=== PATIENT | male | born 1960 | race African-American/Black ===

== ENCOUNTER 2017-04-09 21:08 | Inpatient (IN) | payer OTHER ==
--- NOTE | 2017-04-09 21:41 | HP ---
CIWA Score - CIWA Score Nausea/Vomitin-Mild Nausea/No Vomiting Muscle Tremors: 4-Moderate,w/Arms Extend Anxiety: 4-Mod. Anxious/Guarded Agitation: 4-Moderately Restless Paroxysmal Sweats: 1-Minimal Palms Moist Orientation: 0-Oriented Tacttile Disturbances: 0-None Auditory Disturbances: 0-None Visual Disturbances: 0-None Headache: 1-Very Mild CIWA-Ar Total Score: 15 Admission ROS BHS - HPI Chief Complaint: WITHDRAWAL SX Allergies/Adverse Reactions: Allergies Allergy/AdvReac Type Severity Reaction Status Date / Time Penicillins Allergy Severe Swelling Verified 04/09/17 21:34 History of Present Illness: 56 YEARS OLD MALE WITH LONG HISTORY OF ALCOHOL COCAINE NICOTINE DEPENDENCE, HAS HYPERTENSION AND SCHZOPHRENIA IS ADMITTED TO DETOX Exam Limitations: No Limitations - Ebola screening Have you traveled outside of the country in the last 21 days: No (N) Have you had contact with anyone from an Ebola affected area: No Have you been sick,other than usual withdrawal symptoms: No Do you have a fever: No - Review of Systems Constitutional: Chills, Changes in sleep, Weight Stable EENT: reports: Dental Problems (UPPER TEETH MISSING) Respiratory: reports: No Symptoms reported Cardiac: reports: No Symptoms Reported GI: reports: Nausea, Poor Fluid Intake, Abdominal cramping : reports: No Symptoms Reported Musculoskeletal: reports: Joint Pain (RIGHT LEG) Integumentary: reports: No Symptoms Reported Neuro: reports: Tremors Endocrine: reports: No Symptoms Reported Hematology: reports: No Symptoms Reported Psychiatric: reports: Judgement Intact, Anxious, Depressed Other Systems: Reviewed and Negative Patient History - Patient Medical History Hx Anemia: No Hx Asthma: No Hx Chronic Obstructive Pulmonary Disease (COPD): No Hx Cancer: No Hx Cardiac Disorders: No Hx Congestive Heart Failure: No Hx Hypertension: Yes Hx Hypercholesterolemia: No Hx Pacemaker: No HX Cerebrovascular Accident: No Hx Seizures: No Hx Dementia: No Hx Diabetes: No Hx Gastrointestinal Disorders: Yes Hx Liver Disease: No Hx Genitourinary Disorders: No Hx Sexually Transmitted Disorders: No Hx Renal Disease (ESRD): No Hx Thyroid Disease: No Hx Human Immunodeficiency Virus (HIV): No Hx Hepatitis C: No Hx Depression: No Hx Suicide Attempt: No Hx Bipolar Disorder: No Hx Schizophrenia: Yes - Patient Surgical History Hx Orthopedic Surgery: Yes (RIGHT HIP FX 2003) Anesthesia Reaction: No - PPD History Previous Implant?: Yes Documented Results: Positive w/o proof Implanted On Prior [facility] Admission?: No PPD to be Administered?: Yes - Smoking Cessation Smoking history: Current every day smoker Have you smoked in the past 12 months: Yes Aproximately how many cigarettes per day: 20 Cigars Per Day: 0 Hx Chewing Tobacco Use: No Initiated information on smoking cessation: Yes 'Breaking Loose' booklet given: 04/09/17 - Substance & Tx. History Hx Alcohol Use: Yes Hx Substance Use: Yes Substance Use Type: Alcohol, Cocaine Hx Substance Use Treatment: Yes - Substances Abused Alcohol Route: Oral Frequency: Daily Amount used: PINT [id number]+[id number] Age of first use: 16 Date of Last Use: 04/09/17 Family Disease History - Family Disease History Family Disease History: Heart Disease: Grandparent (), Mother (MENTAL ILLNESS), Sister, Other: Father (), Mother Admission Physical Exam BHS - Physical General Appearance: Yes: Appropriately Dressed, Alcohol on Breath, Tremorous, Irritable, Sweating, Anxious HEENTM: Yes: Hearing grossly Normal, Normal ENT Inspection, Normocephalic, Normal Voice Respiratory: Yes: Chest Non-Tender, Lungs Clear, Normal Breath Sounds, No Respiratory Distress, No Accessory Muscle Use Neck: Yes: Supple, Trachea in good position Breast: Yes: Breasts Symetrical Cardiology: Yes: Regular Rhythm, S1, S2, Tachycardia Abdominal: Yes: Non Tender, Soft Genitourinary: Yes: Within Normal Limits Back: Yes: Normal Inspection Musculoskeletal: Yes: full range of Motion, Gait Steady, Back pain, Muscle Pain (RIGHT LEG) Extremities: Yes: Normal Range of Motion, Non-Tender, Tremors Neurological: Yes: Alert, Motor Strength 5/5, Normal Response, Depressed Affect Integumentary: Yes: Warm Lymphatic: Yes: Within Normal Limits - Diagnostic (1) Alcohol dependence with uncomplicated withdrawal Current Visit: Yes Status: Acute (2) Cocaine dependence, uncomplicated Current Visit: Yes Status: Chronic (3) Nicotine dependence Current Visit: Yes Status: Acute Qualifiers: Nicotine product type: cigarettes Substance use status: in withdrawal Qualified Code(s): F17.213 - Nicotine dependence, cigarettes, with withdrawal (4) Hypertension Current Visit: Yes Status: Chronic Qualifiers: Hypertension type: essential hypertension Qualified Code(s): I10 - Essential (primary) hypertension (5) Use of cane as ambulatory aid Current Visit: Yes Status: Chronic (6) Arthritis Current Visit: Yes Status: Chronic (7) GERD (gastroesophageal reflux disease) Current Visit: Yes Status: Chronic Qualifiers: Esophagitis presence: without esophagitis Qualified Code(s): K21.9 - Gastro-esophageal reflux disease without esophagitis (8) Positive PPD, treated Current Visit: Yes Status: Chronic (9) Muscle cramp Current Visit: Yes Status: Chronic (10) Schizophrenia Current Visit: Yes Status: Chronic Qualifiers: Schizophrenia type: schizophreniform disorder Qualified Code(s): 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 Cleared for Admission BHS - Detox or Rehab S Level of Care: Medically Managed Detox Regimen/Protocol: Librium BHS Breath Alcohol Content Breath Alcohol Content: 0.019 Vital Signs - Vital Signs Vital Signs Refused: No Temperature: 97.6 F Temperature Source: Oral Pulse Rate: 96 Respiratory Rate: 20 Blood Pressure: 155/95 BP Location: Right Arm Blood Pressure Position: Supine - Height Height: 5 ft 3 in - Weight Weight: 160 lb Weight Measurement Method: Standing Scale Body Mass Index (BMI): 28.3 - Bowel Function Bowel Movement: Yes Urine Drug Screen - Control Is Test Valid: Yes - Results Drug Screen Negative: No Urine Drug Screen Results: ESTELLA-Cocaine
[2017-04-09] MEDS ORDERED: ACETAMINOPHEN 325 MG TABLET (FP) PO PRN (21:49)
[2017-04-09] MEDS ORDERED: LOPERAMIDE HCL 2 MG CAPSULE PO PRN (21:49)
[2017-04-09] MEDS ORDERED: MENTHOL/PHENOL 1 EACH UD MM PRN (21:49)
[2017-04-09] MEDS ORDERED: P-EPHED 60MG/TRIPROLIDI 2.5MG TABLET PO PRN (21:49)
[2017-04-09] MEDS ORDERED: guaiFENesin/D-METHORPHAN HB 10 ML UNIT-DOSE CUPS PO PRN (21:49)
[2017-04-09] MEDS ORDERED: MAGNESIUM CITRATE 300 ML BOTTLE PO PRN (21:49)
[2017-04-09] MEDS ORDERED: MAG HYDROX/AL HYDROX/SIMETH 30 ML UNIT-DOSE CUP PO PRN (21:49)
[2017-04-09] MEDS ORDERED: hydrOXYzine PAMOATE 50 MG CAPSULE (FP) PO PRN (21:49)
[2017-04-09] MEDS ORDERED: chlordiazePOXIDE HCL 25 MG CAPSULE PO PRN (21:49)
[2017-04-09] MEDS ORDERED: diphenhydrAMINE HCL 50 MG CAPSULE PO PRN (21:49)
[2017-04-09] MEDS ORDERED: NICOTINE POLACRILEX 4 MG GUM BUC PRN (21:49)
[2017-04-09] MEDS ORDERED: MAGNESIUM HYDROX 2400MG/30ML ORAL SUSPENSION 30 ML CUP PO PRN (21:49)
[2017-04-09] MEDS ORDERED: CYCLOBENZAPRINE HCL 10 MG TABLET (FP) PO PRN (21:53)
[2017-04-09] MEDS ORDERED: BACITRACIN 0.9 GM PACKET TP ONE (21:53)
[2017-04-09] MEDS ORDERED: cloNIDine HCL 0.1 MG TABLET PO PRN (21:57)
[2017-04-09 22:34] VITALS: BMI 28.3
[2017-04-09] MEDS: chlordiazePOXIDE HCL 25 MG CAPSULE PO SCH (22:53)
[2017-04-09] MEDS: RANITIDINE HCL 150 MG TABLET (FP) PO SCH (22:53)
[2017-04-09] MEDS: THIAMINE HCL 100 MG TABLET (FP) PO SCH (22:54)
[2017-04-09] MEDS: MINERAL OIL/PETROLAT/WATER TOPICAL CREAM 113 GM JAR TP SCH (22:55)
[2017-04-09 23:19] LABS: URINE APPEARANCE CLEAR; URINE BILIRUBIN NEGATIVE (NEGATIVE); URINE BLOOD NEGATIVE (NEGATIVE); URINE COLOR LTYELLOW; URINE GLUCOSE (UA) NEGATIVE (NEGATIVE); URINE KETONE NEGATIVE (NEGATIVE); URINE LEUK ESTERASE NEGATIVE (NEGATIVE); URINE NITRITE NEGATIVE (NEGATIVE); URINE PROTEIN NEGATIVE (NEGATIVE); URINE UROBILINOGEN 2.0 E.U/dl E.U./dl (0.2-1.0)
[2017-04-10] MEDS: chlordiazePOXIDE HCL 25 MG CAPSULE PO SCH ×4 (06:06→23:02)
[2017-04-10 09:56] LABS: MCH 24.2 pg (25.7-33.7); MCHC 31.5 g/dl (32.0-35.9); MEAN CELL VOLUME 76.8 fl (80-96); MEAN PLT VOLUME 10.2 fl (7.5-11.1); PLATELET COUNT 169 K/MM3 (134-434); RDW 14.2 % (11.9-15.9); WHITE BLOOD COUNT 6.3 K/mm3 (4.0-10.0)
[2017-04-10] MEDS: RANITIDINE HCL 150 MG TABLET (FP) PO SCH ×2 (10:40→23:02)
[2017-04-10] MEDS: NICOTINE 21 MG/24 HOURS TOPICAL PATCH TD SCH (10:40)
[2017-04-10] MEDS: PRENATAL VITAMINS W/ FOLIC ACID TABLET (FP) PO SCH (10:40)
--- NOTE | 2017-04-10 10:40 | PN ---
S CIWA - CIWA Score Nausea/Vomitin Muscle Tremors: 3 Anxiety: 3 Agitation: 2 Paroxysmal Sweats: 1-Minimal Palms Moist Orientation: 0-Oriented Tacttile Disturbances: 1-Very Mild Itch/Numbness Auditory Disturbances: 1-Very Mild Visual Disturbances: 1-Very Mild Sensitivity Headache: 2-Mild CIWA-Ar Total Score: 17 BHS Progress Note (SOAP) Subjective: ALERT,IRRITABLE,ANXIOUS,INTERRUPTED SLEEP,TREMOR Objective: 04/10/17 10:38 Vital Signs Temperature 97.1 F L 04/10/17 09:42 Pulse Rate 90 04/10/17 09:42 Respiratory Rate 20 04/10/17 09:42 Blood Pressure 139/93 04/10/17 09:42 O2 Sat by Pulse Oximetry (%) EKG NSR,RBBB NO CHEST PAIN,NO SOB,NO DIZZINESS 04/10/17 10:39 04/10/17 10:39 Laboratory Last Values WBC 6.3 K/mm3 (4.0-10.0) 04/10/17 07:00 RBC 4.85 M/mm3 (4.00-5.60) 04/10/17 07:00 Hgb 11.7 GM/dL (11.7-16.9) 04/10/17 07:00 Hct 37.2 % (35.4-49) 04/10/17 07:00 MCV 76.8 fl (80-96) L 04/10/17 07:00 MCHC 31.5 g/dl (32.0-35.9) L 04/10/17 07:00 RDW 14.2 % (11.9-15.9) 04/10/17 07:00 Plt Count 169 K/MM3 (134-434) 04/10/17 07:00 MPV 10.2 fl (7.5-11.1) 04/10/17 07:00 Urine Color Ltyellow 04/09/17 23:00 Urine Appearance Clear 04/09/17 23:00 Urine pH 6.0 (5.0-8.0) 04/09/17 23:00 Urine Protein Negative (NEGATIVE) 04/09/17 23:00 Urine Glucose (UA) Negative (NEGATIVE) 04/09/17 23:00 Urine Ketones Negative (NEGATIVE) 04/09/17 23:00 Urine Blood Negative (NEGATIVE) 04/09/17 23:00 Urine Nitrite Negative (NEGATIVE) 04/09/17 23:00 Urine Bilirubin Negative (NEGATIVE) 04/09/17 23:00 Urine Urobilinogen 2.0 e.u/dl E.U./dl (0.2-1.0) 04/09/17 23:00 Ur Leukocyte Esterase Negative (NEGATIVE) 04/09/17 23:00 LABS PENDING Assessment: 04/10/17 10:39 04/10/17 10:40 WITHDRAWAL SYMPTOM Plan: CONTINUE DETOX
[2017-04-10 10:41] LABS: ALBUMIN 3.2 g/dl (3.4-5.0); ALK PHOS 94 U/L (45-117); ANION GAP 11 (8-16); BILIRUBIN,TOTAL 0.3 mg/dL (0.2-1.0); CALCIUM 8.5 mg/dL (8.5-10.1); CO2 28 mmol/L (21-32); COCKROFT - GAULT 76.97; CREATININE 1.1 mg/dL (0.7-1.3); GLUCOSE,RANDOM 108 mg/dL (74-106); SGOT/AST 30 U/L (15-37); SGPT/ALT 35 U/L (12-78); TOT PROT 6.5 g/dl (6.4-8.2)
--- NOTE | 2017-04-10 13:21 | EKG ---
Test Reason : Blood Pressure : / mmHG Vent. Rate : 091 BPM Atrial Rate : 091 BPM P-R Int : 120 ms QRS Dur : 120 ms QT Int : 388 ms P-R-T Axes : 052 -53 014 degrees QTc Int : 477 ms NORMAL SINUS RHYTHM RIGHT BUNDLE BRANCH BLOCK LEFT ANTERIOR FASCICULAR BLOCK BIFASCICULAR BLOCK ABNORMAL ECG WHEN COMPARED WITH ECG OF 09-APR-2017 22:04, NO SIGNIFICANT CHANGE WAS FOUND Confirmed by RADHA RASMUSSEN MD ([id number]) on 04/10/2017 1:21:17 PM Referred By: Confirmed By:RADHA RASMUSSEN MD
--- NOTE | 2017-04-10 13:21 | EKG ---
Test Reason : Blood Pressure : / mmHG Vent. Rate : 094 BPM Atrial Rate : 094 BPM P-R Int : 122 ms QRS Dur : 128 ms QT Int : 394 ms P-R-T Axes : 055 -58 030 degrees QTc Int : 492 ms NORMAL SINUS RHYTHM RIGHT BUNDLE BRANCH BLOCK LEFT ANTERIOR FASCICULAR BLOCK BIFASCICULAR BLOCK MINIMAL VOLTAGE CRITERIA FOR LVH, MAY BE NORMAL VARIANT SEPTAL INFARCT , AGE UNDETERMINED ABNORMAL ECG NO PREVIOUS ECGS AVAILABLE Confirmed by RADHA RASMUSSEN MD ([id number]) on 04/10/2017 1:20:59 PM Referred By: Confirmed By:RADHA RASMUSSEN MD
--- NOTE | 2017-04-10 15:14 | CONSULT ---
[facility] Psychiatric Consult - Data Date of interview: 04/10/17 Admission source: [facility] Identifying data: Readmission to [facility] for this 56 y/o AA male seeking detox treatment for alcohol and cocaine dependence.Patient is single without children,homeless,unemployed and supported on [facility] benefits. Substance Abuse History: - Smoking Cessation. Smoking history: Current every day smoker. Have you smoked in the past 12 months: Yes. Aproximately how many cigarettes per day: 20. Cigars Per Day: 0. Hx Chewing Tobacco Use: No. Initiated information on smoking cessation: Yes. 'Breaking Loose' booklet given : 04/09/17. - Substance & Tx. History. Hx Alcohol Use: Yes. Hx Substance Use : Yes. Substance Use Type: Alcohol, Cocaine. Hx Substance Use Treatment: Yes. - Substances Abused. Alcohol. Route: Oral. Frequency: Daily. Amount used: PINT VOLKA+40OZX3. Age of first use: 16. Date of Last Use: 04/09/17. Confirmed by patient. Medical History: Hypertension and a history of orthosurgery (right hip in 2003). Psychiatric History: Patient is a hostile,irritable and uncooperative historian.He endorses a history of psychiatric hospitalizations.No details offered.Mr Winn reports treatment with zyprexa 5 mg/hs and zoloft 100 mg/ day.Diagnosed with Schizophrenia.Patient denies having a psychiatric OPD care provider.Denies history of suicide attempts. Physical/Sexual Abuse/Trauma History: Patient denies. Additional Comment: Urine Drug Screen Results: ESTELLA-Cocaine.Noted. Mental Status Exam - Mental Status Exam Alert and Oriented to: Time, Place, Person Cognitive Function: Grossly Intact Patient Appearance: Well Groomed Mood: Withdrawn, Irritable Affect: Mood Congruent Patient Behavior: Fatigued, Uncooperative Speech Pattern: Clear, Delayed Voice Loudness: Moderately Soft/Quiet Thought Process: Goal Oriented Thought Disorder: Not Present Hallucinations: Denies Suicidal Ideation: Denies Homicidal Ideation: Denies Insight/Judgement: Poor Sleep: Well Appetite: Good Muscle strength/Tone: Normal Gait/Station: Other (uses a cane for ambulation.) Psychiatric Findings - Problem List (False Pass 1, 2,3) (1) Alcohol dependence with uncomplicated withdrawal Current Visit: Yes Status: Acute (2) Cocaine dependence, uncomplicated Current Visit: Yes Status: Chronic (3) Nicotine dependence Current Visit: Yes Status: Acute Qualifiers: Nicotine product type: cigarettes Substance use status: in withdrawal Qualified Code(s): F17.213 - Nicotine dependence, cigarettes, with withdrawal (4) Schizophrenia Current Visit: Yes Status: Chronic Qualifiers: Schizophrenia type: schizophreniform disorder Qualified Code(s): 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 (5) Arthritis Current Visit: Yes Status: Chronic (6) GERD (gastroesophageal reflux disease) Current Visit: Yes Status: Chronic Qualifiers: Esophagitis presence: without esophagitis Qualified Code(s): K21.9 - Gastro-esophageal reflux disease without esophagitis (7) Hypertension Current Visit: Yes Status: Chronic Qualifiers: Hypertension type: essential hypertension Qualified Code(s): I10 - Essential (primary) hypertension (8) Positive PPD, treated Current Visit: Yes Status: Chronic (9) Use of cane as ambulatory aid Current Visit: Yes Status: Chronic - Initial Treatment Plan Initial Treatment Plan: Psychoeducation.Detoxification.Medications : zoloft 100 mg po daily + zyprexa 15 mg po hs.Doses verified via contact with [facility] @ [phone] : most recent refills picked up on 03/05/17.New refills needed.Side effects/benefits discussed with patient.He agrees with plan.Observation.
[2017-04-10] MEDS: THIAMINE HCL 100 MG TABLET (FP) PO SCH (23:02)
[2017-04-10] MEDS: MINERAL OIL/PETROLAT/WATER TOPICAL CREAM 113 GM JAR TP SCH (23:02)
[2017-04-10] MEDS: OLANZapine 7.5 MG TABLET PO SCH (23:02)
[2017-04-11] MEDS: chlordiazePOXIDE HCL 25 MG CAPSULE PO SCH ×3 (06:01→17:53)
[2017-04-11] MEDS: PRENATAL VITAMINS W/ FOLIC ACID TABLET (FP) PO SCH (10:38)
[2017-04-11] MEDS: SERTRALINE HCL 50 MG TABLET (FP) PO SCH (10:38)
[2017-04-11] MEDS: RANITIDINE HCL 150 MG TABLET (FP) PO SCH ×2 (10:38→23:09)
[2017-04-11] MEDS: NICOTINE 21 MG/24 HOURS TOPICAL PATCH TD SCH (10:39)
--- NOTE | 2017-04-11 14:57 | PN ---
S CIWA - CIWA Score Nausea/Vomitin Muscle Tremors: 4-Moderate,w/Arms Extend Anxiety: 2 Agitation: 2 Paroxysmal Sweats: 3 Orientation: 4Disoriented Place/Person Tacttile Disturbances: 3-Moderate Itch/Numb/Burn Auditory Disturbances: 0-None Visual Disturbances: 0-None Headache: 0-None Present CIWA-Ar Total Score: 23 BHS Progress Note (SOAP) Subjective: Vomiting, Body Aches, Tremors, Interrupted sleep. Objective: PT. A & O X 2 (DISORIENTED ABOUT CURRENT LOCATION). PT. OBSERVED AMBULATING ON UNIT. PT. DENIES CHEST PAIN. 04/11/17 14:52 Vital Signs Temperature 96.2 F L 04/11/17 09:19 Pulse Rate 91 H 04/11/17 09:19 Respiratory Rate 20 04/11/17 09:19 Blood Pressure 126/95 04/11/17 09:19 O2 Sat by Pulse Oximetry (%) Laboratory Last Values WBC 6.3 K/mm3 (4.0-10.0) 04/10/17 07:00 RBC 4.85 M/mm3 (4.00-5.60) 04/10/17 07:00 Hgb 11.7 GM/dL (11.7-16.9) 04/10/17 07:00 Hct 37.2 % (35.4-49) 04/10/17 07:00 MCV 76.8 fl (80-96) L 04/10/17 07:00 MCHC 31.5 g/dl (32.0-35.9) L 04/10/17 07:00 RDW 14.2 % (11.9-15.9) 04/10/17 07:00 Plt Count 169 K/MM3 (134-434) 04/10/17 07:00 MPV 10.2 fl (7.5-11.1) 04/10/17 07:00 Sodium 143 mmol/L (136-145) 04/10/17 07:00 Potassium 4.0 mmol/L (3.5-5.1) 04/10/17 07:00 Chloride 104 mmol/L (98-107) 04/10/17 07:00 Carbon Dioxide 28 mmol/L (21-32) 04/10/17 07:00 Anion Gap 11 (8-16) 04/10/17 07:00 BUN 18 mg/dL (7-18) 04/10/17 07:00 Creatinine 1.1 mg/dL (0.7-1.3) 04/10/17 07:00 Creat Clearance w eGFR > 60 (>60) 04/10/17 07:00 Random Glucose 108 mg/dL (74-106) H 04/10/17 07:00 Calcium 8.5 mg/dL (8.5-10.1) 04/10/17 07:00 Total Bilirubin 0.3 mg/dL (0.2-1.0) 04/10/17 07:00 AST 30 U/L (15-37) 04/10/17 07:00 ALT 35 U/L (12-78) 04/10/17 07:00 Alkaline Phosphatase 94 U/L (45-117) 04/10/17 07:00 Total Protein 6.5 g/dl (6.4-8.2) 04/10/17 07:00 Albumin 3.2 g/dl (3.4-5.0) L 04/10/17 07:00 Urine Color Ltyellow 04/09/17 23:00 Urine Appearance Clear 04/09/17 23:00 Urine pH 6.0 (5.0-8.0) 04/09/17 23:00 Ur Specific [place] 1.010 (1.005-1.025) 04/09/17 23:00 Urine Protein Negative (NEGATIVE) 04/09/17 23:00 Urine Glucose (UA) Negative (NEGATIVE) 04/09/17 23:00 Urine Ketones Negative (NEGATIVE) 04/09/17 23:00 Urine Blood Negative (NEGATIVE) 04/09/17 23:00 Urine Nitrite Negative (NEGATIVE) 04/09/17 23:00 Urine Bilirubin Negative (NEGATIVE) 04/09/17 23:00 Urine Urobilinogen 2.0 e.u/dl E.U./dl (0.2-1.0) 04/09/17 23:00 Ur Leukocyte Esterase Negative (NEGATIVE) 04/09/17 23:00 RPR Titer Nonreactive (NONREACTIVE) 04/10/17 07:00 LABS NOTED. 04/11/17 14:57 Assessment: 04/11/17 14:57 WITHDRAWAL SYMPTOMS. Plan: CONTINUE DETOX. CONTINUE TO MONITOR BP. ADVISED PATIENT TO FOLLOW-UP WITH INSTRUCTOR NURSE AFTER DISCHARGE FROM DETOX FOR GENERAL MEDICAL ASSESSMENT AND FOR ABNORMAL ADMISSION LAB VALUES.
[2017-04-11] MEDS: chlordiazePOXIDE 5 MG CAPSULE PO SCH (23:09)
[2017-04-11] MEDS: THIAMINE HCL 100 MG TABLET (FP) PO SCH (23:09)
[2017-04-11] MEDS: MINERAL OIL/PETROLAT/WATER TOPICAL CREAM 113 GM JAR TP SCH (23:09)
[2017-04-11] MEDS: OLANZapine 7.5 MG TABLET PO SCH (23:09)
[2017-04-12] MEDS: chlordiazePOXIDE 5 MG CAPSULE PO SCH ×3 (06:44→17:37)
[2017-04-12] MEDS: RANITIDINE HCL 150 MG TABLET (FP) PO SCH ×2 (10:47→22:58)
[2017-04-12] MEDS: SERTRALINE HCL 50 MG TABLET (FP) PO SCH (10:47)
[2017-04-12] MEDS: PRENATAL VITAMINS W/ FOLIC ACID TABLET (FP) PO SCH (10:47)
[2017-04-12] MEDS: NICOTINE 21 MG/24 HOURS TOPICAL PATCH TD SCH (10:47)
[2017-04-12] MEDS: amLODIPine BESYLATE 5 MG TABLET (FP) PO SCH (10:47)
--- NOTE | 2017-04-12 16:08 | PN ---
BHS Progress Note (SOAP) Subjective: Body Aches, Tremors, Interrupted sleep. Objective: PT. A & O X 1 (DISORIENTED ABOUT DAY / DATE AND ABOUT CURRENT LOCATION). PATIENT DENIES CHEST PAIN. 04/12/17 16:04 Vital Signs Temperature 97.6 F 04/12/17 13:59 Pulse Rate 84 04/12/17 13:59 Respiratory Rate 20 04/12/17 13:59 Blood Pressure 159/111 04/12/17 13:59 O2 Sat by Pulse Oximetry (%) Laboratory Last Values WBC 6.3 K/mm3 (4.0-10.0) 04/10/17 07:00 RBC 4.85 M/mm3 (4.00-5.60) 04/10/17 07:00 Hgb 11.7 GM/dL (11.7-16.9) 04/10/17 07:00 Hct 37.2 % (35.4-49) 04/10/17 07:00 MCV 76.8 fl (80-96) L 04/10/17 07:00 MCHC 31.5 g/dl (32.0-35.9) L 04/10/17 07:00 RDW 14.2 % (11.9-15.9) 04/10/17 07:00 Plt Count 169 K/MM3 (134-434) 04/10/17 07:00 MPV 10.2 fl (7.5-11.1) 04/10/17 07:00 Sodium 143 mmol/L (136-145) 04/10/17 07:00 Potassium 4.0 mmol/L (3.5-5.1) 04/10/17 07:00 Chloride 104 mmol/L (98-107) 04/10/17 07:00 Carbon Dioxide 28 mmol/L (21-32) 04/10/17 07:00 Anion Gap 11 (8-16) 04/10/17 07:00 BUN 18 mg/dL (7-18) 04/10/17 07:00 Creatinine 1.1 mg/dL (0.7-1.3) 04/10/17 07:00 Creat Clearance w eGFR > 60 (>60) 04/10/17 07:00 Random Glucose 108 mg/dL (74-106) H 04/10/17 07:00 Calcium 8.5 mg/dL (8.5-10.1) 04/10/17 07:00 Total Bilirubin 0.3 mg/dL (0.2-1.0) 04/10/17 07:00 AST 30 U/L (15-37) 04/10/17 07:00 ALT 35 U/L (12-78) 04/10/17 07:00 Alkaline Phosphatase 94 U/L (45-117) 04/10/17 07:00 Total Protein 6.5 g/dl (6.4-8.2) 04/10/17 07:00 Albumin 3.2 g/dl (3.4-5.0) L 04/10/17 07:00 Urine Color Ltyellow 04/09/17 23:00 Urine Appearance Clear 04/09/17 23:00 Urine pH 6.0 (5.0-8.0) 04/09/17 23:00 Ur Specific [place] 1.010 (1.005-1.025) 04/09/17 23:00 Urine Protein Negative (NEGATIVE) 04/09/17 23:00 Urine Glucose (UA) Negative (NEGATIVE) 04/09/17 23:00 Urine Ketones Negative (NEGATIVE) 04/09/17 23:00 Urine Blood Negative (NEGATIVE) 04/09/17 23:00 Urine Nitrite Negative (NEGATIVE) 04/09/17 23:00 Urine Bilirubin Negative (NEGATIVE) 04/09/17 23:00 Urine Urobilinogen 2.0 e.u/dl E.U./dl (0.2-1.0) 04/09/17 23:00 Ur Leukocyte Esterase Negative (NEGATIVE) 04/09/17 23:00 RPR Titer Nonreactive (NONREACTIVE) 04/10/17 07:00 LABS NOTED. 04/12/17 16:07 Assessment: 04/12/17 16:05 WITHDRAWAL SYMPTOMS. Plan: CONTINUE DETOX. D/C CLONIDINE. START AMLODIPINE, 5 MG PO DAILY (PATIENT PREVIOUSLY TOOK PRIOR TO ADMISSION TO DETOX) FOR ELEVATED BP. ADVISED PATIENT TO FOLLOW-UP WITH [facility] / REHAB MEDICAL PROVIDER AFTER DISCHARGE FROM DETOX FOR GENERAL MEDICAL ASSESSMENT AND FOR ABNORMAL ADMISSION LAB VALUES.
[2017-04-12 22:15] VITALS: BP 119/90; PULSE 86; TEMP 97.1
[2017-04-12] MEDS: THIAMINE HCL 100 MG TABLET (FP) PO SCH (22:57)
[2017-04-12] MEDS: chlordiazePOXIDE HCL 10 MG CAPSULE PO SCH (22:58)
[2017-04-12] MEDS: OLANZapine 7.5 MG TABLET PO SCH (22:58)
[2017-04-12] MEDS: MINERAL OIL/PETROLAT/WATER TOPICAL CREAM 113 GM JAR TP SCH (22:59)
[2017-04-13] MEDS: chlordiazePOXIDE HCL 10 MG CAPSULE PO SCH ×2 (06:22→11:09)
[2017-04-13] MEDS: PRENATAL VITAMINS W/ FOLIC ACID TABLET (FP) PO SCH (11:09)
[2017-04-13] MEDS: amLODIPine BESYLATE 5 MG TABLET (FP) PO SCH (11:09)
[2017-04-13] MEDS: SERTRALINE HCL 50 MG TABLET (FP) PO SCH (11:09)
[2017-04-13] MEDS: RANITIDINE HCL 150 MG TABLET (FP) PO SCH (11:09)
[2017-04-13] MEDS: NICOTINE 21 MG/24 HOURS TOPICAL PATCH TD SCH (11:09)
--- NOTE | 2017-04-13 14:11 | DS ---
[facility] Detox Discharge Summary Admission Date: 04/09/17 Discharge Date: 04/13/17 - History Present History: Alcohol Dependence, Cocaine Dependence Additional Comments: ADVISED PATIENT TO FOLLOW-UP WITH POWERPLANT OPERATOR AFTER DISCHARGE FROM DETOX FOR GENERAL MEDICAL ASSESSMENT AND FOR ABNORMAL ADMISSION LAB VALUES. Pertinent Past History: HTN, GERD, Schizophrneia, Arthritis, Hx. Positive PPD (Treated). - Physical Exam Results Vital Signs: Vital Signs Temperature 97.1 F L 04/12/17 22:15 Pulse Rate 86 04/12/17 22:15 Respiratory Rate 18 04/13/17 03:30 Blood Pressure 119/90 04/12/17 22:15 O2 Sat by Pulse Oximetry (%) Pertinent Admission Physical Exam Findings: WITHDRAWAL SYMPTOMS. Laboratory Last Values WBC 6.3 K/mm3 (4.0-10.0) 04/10/17 07:00 RBC 4.85 M/mm3 (4.00-5.60) 04/10/17 07:00 Hgb 11.7 GM/dL (11.7-16.9) 04/10/17 07:00 Hct 37.2 % (35.4-49) 04/10/17 07:00 MCV 76.8 fl (80-96) L 04/10/17 07:00 MCHC 31.5 g/dl (32.0-35.9) L 04/10/17 07:00 RDW 14.2 % (11.9-15.9) 04/10/17 07:00 Plt Count 169 K/MM3 (134-434) 04/10/17 07:00 MPV 10.2 fl (7.5-11.1) 04/10/17 07:00 Sodium 143 mmol/L (136-145) 04/10/17 07:00 Potassium 4.0 mmol/L (3.5-5.1) 04/10/17 07:00 Chloride 104 mmol/L (98-107) 04/10/17 07:00 Carbon Dioxide 28 mmol/L (21-32) 04/10/17 07:00 Anion Gap 11 (8-16) 04/10/17 07:00 BUN 18 mg/dL (7-18) 04/10/17 07:00 Creatinine 1.1 mg/dL (0.7-1.3) 04/10/17 07:00 Creat Clearance w eGFR > 60 (>60) 04/10/17 07:00 Random Glucose 108 mg/dL (74-106) H 04/10/17 07:00 Calcium 8.5 mg/dL (8.5-10.1) 04/10/17 07:00 Total Bilirubin 0.3 mg/dL (0.2-1.0) 04/10/17 07:00 AST 30 U/L (15-37) 04/10/17 07:00 ALT 35 U/L (12-78) 04/10/17 07:00 Alkaline Phosphatase 94 U/L (45-117) 04/10/17 07:00 Total Protein 6.5 g/dl (6.4-8.2) 04/10/17 07:00 Albumin 3.2 g/dl (3.4-5.0) L 04/10/17 07:00 Urine Color Ltyellow 04/09/17 23:00 Urine Appearance Clear 04/09/17 23:00 Urine pH 6.0 (5.0-8.0) 04/09/17 23:00 Ur Specific [place] 1.010 (1.005-1.025) 04/09/17 23:00 Urine Protein Negative (NEGATIVE) 04/09/17 23:00 Urine Glucose (UA) Negative (NEGATIVE) 04/09/17 23:00 Urine Ketones Negative (NEGATIVE) 04/09/17 23:00 Urine Blood Negative (NEGATIVE) 04/09/17 23:00 Urine Nitrite Negative (NEGATIVE) 04/09/17 23:00 Urine Bilirubin Negative (NEGATIVE) 04/09/17 23:00 Urine Urobilinogen 2.0 e.u/dl E.U./dl (0.2-1.0) 04/09/17 23:00 Ur Leukocyte Esterase Negative (NEGATIVE) 04/09/17 23:00 RPR Titer Nonreactive (NONREACTIVE) 04/10/17 07:00 LABS NOTED. - Treatment Hospital Course: Detox Protocol Followed, Detoxed Safely, Responded well, Discharged Condition Good Patient has Accepted a Rehab Referral to: NO - PT. ELELCTING TO GO HOME; 12- STEP / AA PROGRAMS RECOMMENDED. - Medication Discharge Medications: Ambulatory Orders Olanzapine [Zyprexa -] 15 mg PO DAILY 04/09/17 Sertraline HCl [Zoloft -] 100 mg PO DAILY 04/09/17 Olanzapine [Zyprexa] 15 mg PO HS #60 tablet 04/10/17 Sertraline HCl [Zoloft] 100 mg PO DAILY #30 tablet 04/10/17 - Diagnosis (1) Alcohol dependence with uncomplicated withdrawal Status: Acute (2) Nicotine dependence Status: Chronic Qualifiers: Nicotine product type: cigarettes Substance use status: in withdrawal Qualified Code(s): F17.213 - Nicotine dependence, cigarettes, with withdrawal (3) Arthritis Status: Chronic (4) Cocaine dependence, uncomplicated Status: Acute (5) GERD (gastroesophageal reflux disease) Status: Chronic Qualifiers: Esophagitis presence: without esophagitis Qualified Code(s): K21.9 - Gastro-esophageal reflux disease without esophagitis (6) Hypertension Status: Chronic Qualifiers: Hypertension type: essential hypertension Qualified Code(s): I10 - Essential (primary) hypertension (7) Muscle cramp Status: Chronic (8) Positive PPD, treated Status: Chronic (9) Schizophrenia Status: Chronic Qualifiers: Schizophrenia type: schizophreniform disorder Qualified Code(s): 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
== END 2017-04-13 10:00 | disposition home or self-care (01) | DRG 774 ==
LOC: YASAS 21:08 → Y3N 21:33
PROVIDERS: ADMIT Internal Medicine Addiction Medicine; ATTEND Internal Medicine Addiction Medicine
PROC: HZ2ZZZZ Detoxification Services for Substance Abuse Treatment (ICD-10-PCS; principal; 2017-04-12)
DX: F10.230 Alcohol dependence with withdrawal, uncomplicated (principal); F14.20 Cocaine dependence, uncomplicated; F17.213 Nicotine dependence, cigarettes, with withdrawal; F20.81 Schizophreniform disorder; I10 Essential (primary) hypertension; M12.9 Arthropathy, unspecified; R76.11 Nonspecific reaction to tuberculin skin test without active tuberculosis; R26.2 Difficulty in walking, not elsewhere classified; Z99.89 Dependence on other enabling machines and devices; Z59.0 Homelessness
CPT/HCPCS: 36415; 71020-TC; 80053; 81003; 85027; 86593; 93005; 93010

== ENCOUNTER 2018-01-28 12:06 | Inpatient (IN) | payer OTHER ==
[2018-01-28 13:01] VITALS: BMI 25.7
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
[2018-01-28] MEDS ORDERED: MAG HYDROX/AL HYDROX/SIMETH 30 ML UNIT-DOSE CUP PO PRN (16:28)
[2018-01-28] MEDS ORDERED: LOPERAMIDE HCL 2 MG CAPSULE PO PRN (16:28)
[2018-01-28] MEDS ORDERED: guaiFENesin/D-METHORPHAN HB 10 ML UNIT-DOSE CUPS PO PRN (16:28)
[2018-01-28] MEDS ORDERED: MAGNESIUM HYDROX 2400MG/30ML ORAL SUSPENSION 30 ML CUP PO PRN (16:28)
[2018-01-28] MEDS ORDERED: MENTHOL/PHENOL 1 EACH UD MM PRN (16:28)
[2018-01-28] MEDS ORDERED: MAGNESIUM CITRATE 300 ML BOTTLE PO PRN (16:28)
[2018-01-28] MEDS ORDERED: ACETAMINOPHEN 325 MG TABLET (FP) PO PRN (16:28)
[2018-01-28] MEDS ORDERED: P-EPHED 60MG/TRIPROLIDI 2.5MG TABLET PO PRN (16:28)
[2018-01-28] MEDS ORDERED: IBUPROFEN 400 MG TABLET (FP) PO PRN (16:28)
[2018-01-28] MEDS ORDERED: TUBERCULIN PPD 5 TU/0.1ML VIAL ID ONE (18:21)
[2018-01-28] MEDS: BACITRACIN 0.9 GM PACKET TP SCH (18:49)
[2018-01-28] MEDS: amLODIPine BESYLATE 10 MG TABLET (FP) PO SCH (18:50)
--- NOTE | 2018-01-28 20:47 | PN ---
[facility] Progress Note Note: called by the nurse to order medications for the patient, chart reviewed consult reviewed and and appreciated, zoloft 100 mg po hs and zyprexa 15 mg po hs added, patient will bee seen tomorrow
[2018-01-28] MEDS: THIAMINE HCL 100 MG TABLET (FP) PO SCH (22:26)
[2018-01-28] MEDS: SERTRALINE HCL 50 MG TABLET (FP) PO SCH (22:26)
[2018-01-28] MEDS: MIRTAZAPINE 30 MG TABLET (FP) PO SCH (22:26)
[2018-01-28] MEDS: OLANZapine 7.5 MG TABLET PO SCH (22:26)
[2018-01-28] MEDS: TOLNAFTATE 1% CREAM 15 GM TUBE TP SCH (22:27)
[2018-01-29 05:31] LABS: URINE APPEARANCE CLEAR; URINE BILIRUBIN NEGATIVE (NEGATIVE); URINE BLOOD NEGATIVE (NEGATIVE); URINE COLOR YELLOW; URINE GLUCOSE (UA) NEGATIVE (NEGATIVE); URINE KETONE NEGATIVE (NEGATIVE); URINE LEUK ESTERASE NEGATIVE (NEGATIVE); URINE NITRITE NEGATIVE (NEGATIVE); URINE PROTEIN NEGATIVE (NEGATIVE); URINE UROBILINOGEN 4.0 E.U/dl mg/dL (0.2-1.0)
[2018-01-29] MEDS ORDERED: PRENATAL VITAMINS W/ FOLIC ACID TABLET (FP) PO SCH (10:00)
[2018-01-29 10:24] LABS: HEMATOCRIT 38.2 % (35.4-49); HEMOGLOBIN 11.3 GM/dL (11.7-16.9); MCH 23.1 pg (25.7-33.7); MCHC 29.6 g/dl (32.0-35.9); MEAN CELL VOLUME 77.9 fl (80-96); MEAN PLT VOLUME 9.6 fl (7.5-11.1); PLATELET COUNT 208 K/MM3 (134-434); RBC 4.91 M/mm3 (4.00-5.60); WHITE BLOOD COUNT 6.7 K/mm3 (4.0-10.0)
[2018-01-29 10:29] LABS: CHLORIDE 103 mmol/L (98-107); POTASSIUM 4.1 mmol/L (3.5-5.1); SODIUM 141 mmol/L (136-145)
--- NOTE | 2018-01-29 10:29 | EKG ---
Test Reason : Blood Pressure : / mmHG Vent. Rate : 112 BPM Atrial Rate : 112 BPM P-R Int : 118 ms QRS Dur : 116 ms QT Int : 346 ms P-R-T Axes : 067 -61 015 degrees QTc Int : 472 ms SINUS TACHYCARDIA RIGHT BUNDLE BRANCH BLOCK LEFT ANTERIOR FASCICULAR BLOCK BIFASCICULAR BLOCK ABNORMAL ECG WHEN COMPARED WITH ECG OF 10-APR-2017 07:36, NO SIGNIFICANT CHANGE WAS FOUND Confirmed by RADHA RASMUSSEN MD ([id number]) on 01/29/2018 10:29:30 AM Referred By: Confirmed By:RADHA RASMUSSEN MD
--- NOTE | 2018-01-29 10:31 | EKG ---
Test Reason : Blood Pressure : / mmHG Vent. Rate : 081 BPM Atrial Rate : 081 BPM P-R Int : 120 ms QRS Dur : 134 ms QT Int : 404 ms P-R-T Axes : 070 -47 014 degrees QTc Int : 469 ms NORMAL SINUS RHYTHM RIGHT BUNDLE BRANCH BLOCK LEFT ANTERIOR FASCICULAR BLOCK BIFASCICULAR BLOCK ABNORMAL ECG WHEN COMPARED WITH ECG OF 28-JAN-2018 23:38, NO SIGNIFICANT CHANGE WAS FOUND Confirmed by RADHA RASMUSSEN MD ([id number]) on 01/29/2018 10:31:26 AM Referred By: Valdez NAVARRETE Confirmed By:RADHA RASMUSSEN MD
[2018-01-29 10:38] LABS: ALK PHOS 86 U/L (45-117); ANION GAP 8 (8-16); BILIRUBIN,TOTAL 0.6 mg/dL (0.2-1.0); BLOOD UREA NITROGEN 11 mg/dL (7-18); CALCIUM 8.7 mg/dL (8.5-10.1); CO2 30 mmol/L (21-32); CREATININE 0.7 mg/dL (0.7-1.3); GLUCOSE,RANDOM 87 mg/dL (74-106); SGOT/AST 40 U/L (15-37); SGPT/ALT 46 U/L (12-78); TOT PROT 6.8 g/dl (6.4-8.2)
[2018-01-29] MEDS: amLODIPine BESYLATE 10 MG TABLET (FP) PO SCH (10:48)
[2018-01-29] MEDS: BACITRACIN 0.9 GM PACKET TP SCH (10:48)
[2018-01-29] MEDS: TOLNAFTATE 1% CREAM 15 GM TUBE TP SCH ×2 (10:49→21:51)
--- NOTE | 2018-01-29 13:03 | PN ---
[facility] Progress Note Note: [employer] was unable to interview this patient, he was approached today several times and asked to come to the office for the interview, patient was in bed with eyes closed and reported "I was in the run for 4 days I need rest, leave me alone". Will try to interview later.
[2018-01-29] MEDS: THIAMINE HCL 100 MG TABLET (FP) PO SCH (21:50)
[2018-01-29] MEDS: OLANZapine 7.5 MG TABLET PO SCH (21:50)
[2018-01-29] MEDS: MIRTAZAPINE 30 MG TABLET (FP) PO SCH (21:50)
[2018-01-29] MEDS: SERTRALINE HCL 50 MG TABLET (FP) PO SCH (21:50)
[2018-01-30 06:56] VITALS: BP 123/87; PULSE 105; TEMP 99.1
--- NOTE | 2018-01-30 14:53 | PN ---
[facility] Progress Note Note: patient signed out AMA this morning, he refused to wait to meet with the staff, please see medical staff notes.
== END 2018-01-30 07:25 | disposition left against medical advice (07) | DRG 770 ==
LOC: YASAS 12:06 → Y5N 16:48
PROVIDERS: ADMIT Psychiatry & Neurology Psychiatry; ATTEND Psychiatry & Neurology Psychiatry
PROC: HZ42ZZZ Group Counseling for Substance Abuse Treatment, Cognitive-Behavioral (ICD-10-PCS; principal; 2018-01-28)
DX: F14.20 Cocaine dependence, uncomplicated (principal); F17.210 Nicotine dependence, cigarettes, uncomplicated; F25.9 Schizoaffective disorder, unspecified; F31.9 Bipolar disorder, unspecified; I10 Essential (primary) hypertension; B18.2 Chronic viral hepatitis C; D50.9 Iron deficiency anemia, unspecified; Z88.0 Allergy status to penicillin
CPT/HCPCS: 36415; 71046-TC-FY; 80053; 81003; 85027; 86593; 87389; 93005; 93010

== ENCOUNTER 2019-02-13 16:32 | Inpatient (IN) | payer OTHER ==
[2019-02-13 17:54] VITALS: BMI 26.0
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
[2019-02-13] MEDS ORDERED: MAG HYDROX/AL HYDROX/SIMETH 30 ML UNIT-DOSE CUP PO PRN (19:57)
[2019-02-13] MEDS ORDERED: hydrOXYzine PAMOATE 25 MG CAPSULE (FP) PO PRN (19:57)
[2019-02-13] MEDS ORDERED: chlordiazePOXIDE HCL 10 MG CAPSULE PO PRN (19:57)
[2019-02-13] MEDS ORDERED: NICOTINE POLACRILEX 2 MG GUM BUC PRN (19:57)
[2019-02-13] MEDS ORDERED: MELATONIN 5 MG TABLETS PO PRN (19:57)
[2019-02-13] MEDS ORDERED: IBUPROFEN 400 MG TABLET (FP) PO PRN (19:57)
[2019-02-13] MEDS ORDERED: BISMUTH SUBSALICYLATE 524 MG/30 ML UD PO PRN (19:57)
[2019-02-13] MEDS ORDERED: MAGNESIUM CITRATE 300 ML BOTTLE PO PRN (19:57)
[2019-02-13] MEDS ORDERED: MAGNESIUM HYDROX 2400MG/30ML ORAL SUSPENSION 30 ML CUP PO PRN (19:57)
[2019-02-13] MEDS ORDERED: ACETAMINOPHEN 325 MG TABLET (FP) PO PRN ×2 (19:57)
[2019-02-13] MEDS ORDERED: MENTHOL/PHENOL 1 EACH UD MM PRN (19:57)
[2019-02-13] MEDS ORDERED: AMMONIUM LACTATE 12% LOTION 225 GM BOTTLE TP PRN (21:11)
[2019-02-13] MEDS ORDERED: chlordiazePOXIDE HCL 25 MG CAPSULE PO ONE (21:30)
[2019-02-13] MEDS: TOLNAFTATE 1% CREAM 15 GM TUBE TP SCH (22:26)
[2019-02-13] MEDS: THIAMINE HCL 100 MG TABLET (FP) PO SCH (22:29)
[2019-02-13] MEDS: chlordiazePOXIDE HCL 25 MG CAPSULE PO SCH (22:30)
[2019-02-14] MEDS: chlordiazePOXIDE HCL 25 MG CAPSULE PO SCH ×2 (07:26→13:01)
[2019-02-14 10:48] LABS: HEMATOCRIT 34.1 % (35.4-49); HEMOGLOBIN 10.9 GM/dL (11.7-16.9); MCH 24.5 pg (25.7-33.7); MCHC 31.8 g/dl (32.0-35.9); MEAN CELL VOLUME 76.9 fl (80-96); MEAN PLT VOLUME 9.7 fl (7.5-11.1); PLATELET COUNT 141 K/MM3 (134-434); RBC 4.43 M/mm3 (4.00-5.60); RDW 13.7 % (11.9-15.9)
[2019-02-14] MEDS: amLODIPine BESYLATE 10 MG TABLET (FP) PO SCH (11:04)
[2019-02-14] MEDS: NICOTINE 14 MG/24 HOURS TOPICAL PATCH TD SCH (11:04)
[2019-02-14] MEDS: PRENATAL VITAMINS W/ FOLIC ACID TABLET (FP) PO SCH (11:05)
[2019-02-14] MEDS: TOLNAFTATE 1% CREAM 15 GM TUBE TP SCH ×2 (11:05→23:05)
[2019-02-14 11:13] LABS: ALK PHOS 76 U/L (45-117); ANION GAP 6 MMOL/L (8-16); BILIRUBIN,TOTAL 0.2 mg/dL (0.2-1); BLOOD UREA NITROGEN 14 mg/dL (7-18); CALCIUM 8.1 mg/dL (8.5-10.1); CHLORIDE 106 mmol/L (98-107); CO2 29 mmol/L (21-32); CREATININE 0.7 mg/dL (0.55-1.3); GLUCOSE,RANDOM 95 mg/dL (74-106); SGOT/AST 18 U/L (15-37); SGPT/ALT 23 U/L (13-61); SODIUM 141 mmol/L (136-145); TOT PROT 6.2 g/dl (6.4-8.2)
--- NOTE | 2019-02-14 11:47 | PN ---
S CIWA - CIWA Score Nausea/Vomitin Muscle Tremors: 2 Anxiety: 2 Agitation: 2 Paroxysmal Sweats: 2 Orientation: 0-Oriented Tacttile Disturbances: 2-Mild Itch/Numbness/Burn Auditory Disturbances: 0-None Visual Disturbances: 0-None Headache: 2-Mild CIWA-Ar Total Score: 14 S Progress Note (SOAP) Subjective: Generalized pain, tremors, sweats and interrupted sleep Objective: 02/14/19 11:46 Last Vital Signs Temp Pulse Resp BP Pulse Ox 98.2 F 92 H 18 127/80 02/14/19 10:14 02/14/19 10:14 02/14/19 10:14 02/14/19 10:14 Laboratory Last Values WBC 5.0 K/mm3 (4.0-10.0) 02/14/19 07:50 RBC 4.43 M/mm3 (4.00-5.60) 02/14/19 07:50 Hgb 10.9 GM/dL (11.7-16.9) L 02/14/19 07:50 Hct 34.1 % (35.4-49) L 02/14/19 07:50 MCV 76.9 fl (80-96) L 02/14/19 07:50 MCH 24.5 pg (25.7-33.7) L 02/14/19 07:50 MCHC 31.8 g/dl (32.0-35.9) L 02/14/19 07:50 RDW 13.7 % (11.9-15.9) 02/14/19 07:50 Plt Count 141 K/MM3 (134-434) D 02/14/19 07:50 MPV 9.7 fl (7.5-11.1) 02/14/19 07:50 Sodium 141 mmol/L (136-145) 02/14/19 07:50 Potassium 4.0 mmol/L (3.5-5.1) 02/14/19 07:50 Chloride 106 mmol/L (98-107) 02/14/19 07:50 Carbon Dioxide 29 mmol/L (21-32) 02/14/19 07:50 Anion Gap 6 MMOL/L (8-16) L 02/14/19 07:50 BUN 14 mg/dL (7-18) 02/14/19 07:50 Creatinine 0.7 mg/dL (0.55-1.3) 02/14/19 07:50 Creat Clearance w eGFR 115.83 (>60) 02/14/19 07:50 Random Glucose 95 mg/dL (74-106) 02/14/19 07:50 Calcium 8.1 mg/dL (8.5-10.1) L 02/14/19 07:50 Total Bilirubin 0.2 mg/dL (0.2-1) 02/14/19 07:50 AST 18 U/L (15-37) 02/14/19 07:50 ALT 23 U/L (13-61) 02/14/19 07:50 Alkaline Phosphatase 76 U/L (45-117) 02/14/19 07:50 Total Protein 6.2 g/dl (6.4-8.2) L 02/14/19 07:50 Albumin 3.0 g/dl (3.4-5.0) L 02/14/19 07:50 Labs noted with abnormalities, no panic values Assessment: 02/14/19 11:46 Withdrawal sx Plan: Continue detox
--- NOTE | 2019-02-14 13:10 | EKG ---
Test Reason : Blood Pressure : / mmHG Vent. Rate : 098 BPM Atrial Rate : 098 BPM P-R Int : 120 ms QRS Dur : 146 ms QT Int : 386 ms P-R-T Axes : 067 -46 031 degrees QTc Int : 492 ms NORMAL SINUS RHYTHM RIGHT BUNDLE BRANCH BLOCK LEFT ANTERIOR FASCICULAR BLOCK BIFASCICULAR BLOCK ABNORMAL ECG WHEN COMPARED WITH ECG OF 29-JAN-2018 09:27, NO SIGNIFICANT CHANGE WAS FOUND Confirmed by MD SHIRA, MARIETTA ([id number]) on 02/14/2019 1:09:43 PM Referred By: Confirmed By:MARIETTA SILVA MD
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
[2019-02-14 19:05] LABS: URINE APPEARANCE CLEAR; URINE BILIRUBIN NEGATIVE (<2.0 mg/dL); URINE COLOR LTYELLOW; URINE GLUCOSE (UA) NEGATIVE (NEGATIVE); URINE KETONE NEGATIVE (NEGATIVE); URINE LEUK ESTERASE NEGATIVE (NEGATIVE); URINE NITRITE NEGATIVE (NEGATIVE); URINE PROTEIN NEGATIVE (NEGATIVE); URINE UROBILINOGEN NEGATIVE mg/dL (0.2-1.0)
[2019-02-14] MEDS: chlordiazePOXIDE 5 MG CAPSULE PO SCH (23:04)
[2019-02-14] MEDS: OLANZapine 5 MG TABLET PO SCH (23:05)
[2019-02-14] MEDS: MIRTAZAPINE 15 MG TABLET (FP) PO SCH (23:05)
[2019-02-14] MEDS: THIAMINE HCL 100 MG TABLET (FP) PO SCH (23:05)
[2019-02-15] MEDS: chlordiazePOXIDE 5 MG CAPSULE PO SCH ×2 (06:21→14:03)
[2019-02-15] MEDS ORDERED: SERTRALINE HCL 50 MG TABLET (FP) PO SCH ×2 (10:00→22:00)
--- NOTE | 2019-02-15 10:04 | PN ---
[facility] CIWA - CIWA Score Nausea/Vomitin-No Nausea/No Vomiting Muscle Tremors: 2 Anxiety: 3 Agitation: 4-Moderately Restless Paroxysmal Sweats: 1-Minimal Palms Moist Orientation: 0-Oriented Tacttile Disturbances: 1-Very Mild Itch/Numbness Auditory Disturbances: 0-None Visual Disturbances: 0-None Headache: 0-None Present CIWA-Ar Total Score: 11 S Progress Note (SOAP) Subjective: agitated, anxious, interrupted sleep Objective: 02/15/19 13:03 Vital Signs Temperature 97.9 F 02/15/19 09:40 Pulse Rate 64 02/15/19 09:40 Respiratory Rate 14 02/15/19 09:40 Blood Pressure 112/72 02/15/19 09:40 O2 Sat by Pulse Oximetry (%) Laboratory Last Values WBC 5.0 K/mm3 (4.0-10.0) 02/14/19 07:50 RBC 4.43 M/mm3 (4.00-5.60) 02/14/19 07:50 Hgb 10.9 GM/dL (11.7-16.9) L 02/14/19 07:50 Hct 34.1 % (35.4-49) L 02/14/19 07:50 MCV 76.9 fl (80-96) L 02/14/19 07:50 MCH 24.5 pg (25.7-33.7) L 02/14/19 07:50 MCHC 31.8 g/dl (32.0-35.9) L 02/14/19 07:50 RDW 13.7 % (11.9-15.9) 02/14/19 07:50 Plt Count 141 K/MM3 (134-434) D 02/14/19 07:50 MPV 9.7 fl (7.5-11.1) 02/14/19 07:50 Sodium 141 mmol/L (136-145) 02/14/19 07:50 Potassium 4.0 mmol/L (3.5-5.1) 02/14/19 07:50 Chloride 106 mmol/L (98-107) 02/14/19 07:50 Carbon Dioxide 29 mmol/L (21-32) 02/14/19 07:50 Anion Gap 6 MMOL/L (8-16) L 02/14/19 07:50 BUN 14 mg/dL (7-18) 02/14/19 07:50 Creatinine 0.7 mg/dL (0.55-1.3) 02/14/19 07:50 Creat Clearance w eGFR 115.83 (>60) 02/14/19 07:50 Random Glucose 95 mg/dL (74-106) 02/14/19 07:50 Calcium 8.1 mg/dL (8.5-10.1) L 02/14/19 07:50 Total Bilirubin 0.2 mg/dL (0.2-1) 02/14/19 07:50 AST 18 U/L (15-37) 02/14/19 07:50 ALT 23 U/L (13-61) 02/14/19 07:50 Alkaline Phosphatase 76 U/L (45-117) 02/14/19 07:50 Total Protein 6.2 g/dl (6.4-8.2) L 02/14/19 07:50 Albumin 3.0 g/dl (3.4-5.0) L 02/14/19 07:50 Urine Color Ltyellow 02/14/19 12:44 Urine Appearance Clear 02/14/19 12:44 Urine pH 5.0 (5.0-8.0) 02/14/19 12:44 Ur Specific [place] 1.020 (1.010-1.035) 02/14/19 12:44 Urine Protein Negative (NEGATIVE) 02/14/19 12:44 Urine Glucose (UA) Negative (NEGATIVE) 02/14/19 12:44 Urine Ketones Negative (NEGATIVE) 02/14/19 12:44 Urine Blood Negative (NEGATIVE) 02/14/19 12:44 Urine Nitrite Negative (NEGATIVE) 02/14/19 12:44 Urine Bilirubin Negative (<2.0 mg/dL) 02/14/19 12:44 Urine Urobilinogen Negative mg/dL (0.2-1.0) 02/14/19 12:44 Ur Leukocyte Esterase Negative (NEGATIVE) 02/14/19 12:44 RPR Titer Nonreactive (NONREACTIVE) 02/14/19 07:50 labs noted Assessment: 02/15/19 13:03 Aox3, agitated, no distress full ROM ambulating in the unit Plan: Patient expressed feeling upset about not being able to wear head wear, unit rules reinforced to patient Patient reports he takes all his psych meds at home night refuse to take psych meds in am, as per patient this the plan he was worked with his psychiatrist outpatient which helps him stay "calm", scheduled am med changed to pm increase po fluids continue detox continue to monitor
[2019-02-15] MEDS: PRENATAL VITAMINS W/ FOLIC ACID TABLET (FP) PO SCH (10:10)
[2019-02-15] MEDS: TOLNAFTATE 1% CREAM 15 GM TUBE TP SCH ×2 (10:11→22:32)
[2019-02-15] MEDS: NICOTINE 14 MG/24 HOURS TOPICAL PATCH TD SCH (10:11)
[2019-02-15] MEDS: amLODIPine BESYLATE 10 MG TABLET (FP) PO SCH (10:11)
[2019-02-15] MEDS ORDERED: chlordiazePOXIDE HCL 10 MG CAPSULE PO PRN (21:00)
[2019-02-15] MEDS: OLANZapine 5 MG TABLET PO SCH (22:31)
[2019-02-15] MEDS: chlordiazePOXIDE HCL 10 MG CAPSULE PO SCH (22:31)
[2019-02-15] MEDS: MIRTAZAPINE 15 MG TABLET (FP) PO SCH (22:35)
[2019-02-15] MEDS: THIAMINE HCL 100 MG TABLET (FP) PO SCH (23:18)
[2019-02-16 06:49] VITALS: TEMP 96.4
[2019-02-16] MEDS: chlordiazePOXIDE HCL 10 MG CAPSULE PO SCH ×2 (07:24→13:03)
[2019-02-16 09:19] VITALS: BP 140/87; PULSE 75
--- NOTE | 2019-02-16 09:48 | DS ---
[facility] Detox Discharge Summary Admission Date: 02/13/19 Discharge Date: 02/16/19 - History Present History: Alcohol Dependence - Physical Exam Results Vital Signs: Vital Signs Temperature 96.4 F L 02/16/19 09:18 Pulse Rate 75 02/16/19 09:18 Respiratory Rate 18 02/16/19 09:18 Blood Pressure 140/87 02/16/19 09:18 O2 Sat by Pulse Oximetry (%) - Treatment Hospital Course: Detox Protocol Followed, Detoxed Safely, Responded well, Discharged Condition Good, Rehab Referral Accepted - Medication Discharge Medications: Ambulatory Orders Olanzapine [Zyprexa] 15 mg PO HS #60 tablet 04/10/17 Amlodipine Besylate 10 mg PO DAILY 01/28/18 Mirtazapine [Remeron -] 30 mg PO HS 01/28/18 Sertraline HCl [Zoloft] 100 mg PO HS 01/28/18 - Diagnosis (1) Alcohol dependence with uncomplicated withdrawal Current Visit: Yes Status: Chronic (2) Arthritis Current Visit: Yes Status: Chronic (3) Cocaine dependence, uncomplicated Current Visit: Yes Status: Chronic (4) Dry skin Current Visit: Yes Status: Chronic (5) History of bipolar disorder Current Visit: Yes Status: Chronic (6) History of positive PPD Current Visit: Yes Status: Chronic (7) Insomnia Current Visit: Yes Status: Chronic (8) Nicotine dependence Current Visit: Yes Status: Chronic Qualifiers: Nicotine product type: cigarettes Substance use status: uncomplicated Qualified Code(s): F17.210 - Nicotine dependence, cigarettes, uncomplicated (9) Non-compliance Current Visit: Yes Status: Chronic (10) Tinea pedis Current Visit: Yes Status: Chronic Qualifiers: Laterality: bilateral Qualified Code(s): B35.3 - Tinea pedis (11) Schizoaffective disorder Current Visit: Yes Status: Suspected Qualifiers: Schizoaffective disorder type: unspecified Qualified Code(s): F25.9 - Schizoaffective disorder, unspecified (12) GERD (gastroesophageal reflux disease) Current Visit: Yes Status: Chronic Qualifiers: Esophagitis presence: without esophagitis Qualified Code(s): K21.9 - Gastro -esophageal reflux disease without esophagitis (13) History of hypertension Current Visit: No Status: Chronic (14) Hypertension Current Visit: Yes Status: Chronic Qualifiers: Hypertension type: essential hypertension Qualified Code(s): I10 - Essential (primary) hypertension (15) Positive PPD, treated Current Visit: No Status: Chronic (16) Schizophrenia Current Visit: No Status: Chronic Qualifiers: Schizophrenia type: schizophreniform disorder Qualified Code(s): 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
[2019-02-16] MEDS: NICOTINE 14 MG/24 HOURS TOPICAL PATCH TD SCH (10:26)
[2019-02-16] MEDS: TOLNAFTATE 1% CREAM 15 GM TUBE TP SCH (10:26)
[2019-02-16] MEDS: amLODIPine BESYLATE 10 MG TABLET (FP) PO SCH (10:26)
[2019-02-16] MEDS: PRENATAL VITAMINS W/ FOLIC ACID TABLET (FP) PO SCH (10:26)
== END 2019-02-16 16:30 | disposition home or self-care (01) | DRG 774 ==
LOC: YASAS 16:32 → Y6N 21:20
PROVIDERS: ADMIT Surgery; ATTEND Surgery
PROC: HZ2ZZZZ Detoxification Services for Substance Abuse Treatment (ICD-10-PCS; principal; 2019-02-13)
DX: F10.230 Alcohol dependence with withdrawal, uncomplicated (principal); F14.20 Cocaine dependence, uncomplicated; F17.210 Nicotine dependence, cigarettes, uncomplicated; F25.9 Schizoaffective disorder, unspecified; F20.81 Schizophreniform disorder; I10 Essential (primary) hypertension; B35.3 Tinea pedis; G47.00 Insomnia, unspecified; L98.8 Other specified disorders of the skin and subcutaneous tissue; M13.862 Other specified arthritis, left knee; K21.9 Gastro-esophageal reflux disease without esophagitis; B18.2 Chronic viral hepatitis C; D50.9 Iron deficiency anemia, unspecified; R00.0 Tachycardia, unspecified; H55.00 Unspecified nystagmus; R26.2 Difficulty in walking, not elsewhere classified; Z99.89 Dependence on other enabling machines and devices; Z91.19 Patient's noncompliance with other medical treatment and regimen
CPT/HCPCS: 36415; 71046-TC-FY; 80053; 81003; 85027; 86593; 93005; 93010